=== PATIENT | male | born 1955 | race Caucasian/White ===

== ENCOUNTER → 2017-08-11 | Outpatient (CLI) | payer MEDICARE, OTHER ==
--- NOTE | 2017-08-11 09:24 | RAD ---
CT chest without contrast 08/11/2017 Clinical indication: Evaluate pulmonary nodules. Tobacco use. Comparison: None. Technique: Multiple CT images of the chest were obtained without contrast according to standard protocol. PQRS Compliance Statement: One or more of the following individualized dose reduction techniques were utilized for this examination: 1. Automated exposure control 2. Adjustment of the mA and/or kV according to patient size 3. Use of iterative reconstruction technique Findings: Heart size is normal without significant pericardial effusion. The thoracic aorta is normal in caliber with mild calcified atheromatous disease. No axillary, mediastinal or obvious hilar lymphadenopathy, though evaluation is limited in the absence of intravenous contrast. There are postsurgical changes of a prior right upper lobe wedge resection. There is linear soft tissue thickening adjacent to the suture line measuring 0.2 cm in thickness series 5/image 73. There is a calcified nodule in the right middle lobe measuring 1.5 cm series 5/image 218. There is an irregular 0.4 cm noncalcified nodule in the left upper lobe series 5/image 216. There is moderate upper lobe predominant centrilobular emphysema. No destructive osseous lesions. Limited images of the upper abdomen: Hepatic steatosis. Impression: 1. Prior right upper lobe wedge resection with linear soft tissue thickening, may represent post therapeutic scarring. Correlation with prior imaging is recommended. 2. Tiny, 0.4 cm, irregular noncalcified nodule in the left upper lobe, indeterminate. Also correlation with remote imaging and if two-year stability cannot be confirmed CT chest in 6 months is recommended. 3. 1.5 cm calcified nodule in the right middle lobe. 4. Moderate emphysema. 5. Hepatic steatosis.
== END | disposition home or self-care (01) ==
LOC: CT 08:27
PROVIDERS: ATTEND Internal Medicine
DX: R91.1 Solitary pulmonary nodule (principal); J43.9 Emphysema, unspecified; K76.0 Fatty (change of) liver, not elsewhere classified; Z72.0 Tobacco use
CPT/HCPCS: 71250